=== PATIENT | male | born 1970 | race Caucasian/White ===

== ENCOUNTER 2016-11-20 18:58 | Emergency (ER) | payer BC, OTHER ==
[~2016-11-20] VITALS: Ht 182.9 cm; Wt 92.1 kg
[2016-11-20 20:56] LABS: ABSOLUTE NEUTROPHILS 4.5 thou/uL (1.4-8.2); BASOPHILS 0.3 % (0.0-2.0); EOSINOPHILS 2.8 % (0.0-3.0); HEMATOCRIT 40.2 % (42.0-52.0); HEMOGLOBIN 13.8 gm/dL (14.0-18.0); LYMPHOCYTES 19.6 % (24.0-44.0); MCHC 34.3 g/dL (28.0-37.0); MCV 87.7 fL (80.0-100.0); MONOCYTES 8.9 % (1.0-8.0); PLATELET COUNT 183 thou/uL (150-400); POLYS 68.4 % (36.0-66.0); RBC 4.58 mil/uL (4.50-6.00); RDW 12.4 % (10.5-14.5); WBC 6.5 thou/uL (4.0-11.0)
[2016-11-20 21:00] LABS: MANUAL DIFF NO
[2016-11-20 21:06] LABS: CREATININE 1.2 mg/dL (0.7-1.3); POTASSIUM 3.7 mmol/L (3.5-5.1)
[2016-11-20 21:10] LABS: ALBUMIN 3.8 g/dL (3.4-5.0); TOTAL BILIRUBIN 0.8 mg/dL (<0.1-1.0); TOTAL PROTEIN 7.1 g/dL (6.4-8.2)
[2016-11-20] MEDS ORDERED: SENOKOT-S1 TA1 PO (22:11)
[2016-11-20] MEDS ORDERED: VALACYCLOVIR1000 MG PO (22:11)
[2016-11-20] MEDS ORDERED: NORCO 5-325 TA1 EACH PO (22:15)
[2016-11-20] MEDS ORDERED: KETOCONAZOLE60 GM TP (22:34)
[2016-11-20] MEDS ORDERED: FLEXERIL PO (22:45)
[2016-11-20 23:04] VITALS: BP 140/90
== END 2016-11-20 23:06 | disposition home or self-care (01) ==
LOC: ER 18:58
PROVIDERS: Physician Assistant
DX: B35.4 Tinea corporis (principal); B02.9 Zoster without complications; Z88.0 Allergy status to penicillin